=== PATIENT | male | born 1950 | race African-American/Black ===

== ENCOUNTER 2022-07-03 08:08 | Emergency (ER) | payer OTHER ==
[2022-07-03 08:17] VITALS: TEMP 98.8; BMI 31.6
[2022-07-03] MEDS ORDERED: ACETAMINOPHEN 500 MG TABLET (FP) PO ONE (09:09)
[2022-07-03] MEDS ORDERED: ACETAMINOPHEN 325 MG TABLET (FP) ONE (09:43)
[2022-07-03 11:55] VITALS: BP 124/82; PULSE 73; RESP 18
== END 2022-07-03 11:56 | disposition home or self-care (01) ==
LOC: JER 08:08
DX: S16.1XXA Strain of muscle, fascia and tendon at neck level, initial encounter (principal); R51.9 Headache, unspecified; M54.2 Cervicalgia; W10.8XXA Fall (on) (from) other stairs and steps, initial encounter; W22.8XXA Striking against or struck by other objects, initial encounter; Y92.22 Religious institution as the place of occurrence of the external cause; M25.569 Pain in unspecified knee
CPT/HCPCS: 70450-TC; 72125-TC; 73070-TC-LT-FY; 99284-25